=== PATIENT | female | born 1995 ===

== ENCOUNTER 2024-06-24 21:01 | Emergency (ER) | payer OTHER, MEDICAID, SELFPAY ==
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
[2024-06-24 21:17] VITALS: BP 160/80; PULSE 94; O2SAT 98
[2024-06-24 21:18] VITALS: BMI 20.8
[2024-06-24] MEDS: Acetaminophen 325 MG TABLET 975 MG PO (21:41)
[2024-06-24 21:50] LABS: Appearance Urine Clear; Color Urine Yellow; Glucose Urine UA Negative (Negative); Leukocyte Esterase Urine Trace (Negative); Nitrite Urine Negative (Negative); Specific Gravity - Urine <= 1.005 (1.005-1.025); UMIC TRIGGER UACC YES; Urine Blood Negative (Negative); Urine Ketones Negative (Negative); Urine Protein Trace mg/dL (Neg-Trace)
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
[2024-06-24 21:55] LABS: Bacteria Urine Trace (None Seen); Hyaline Casts Urine 0-2 /LPF (0-2); RBC Urine 0-2 /HPF (0-2); Squamous Epithelial Cell Urine 0-2 /HPF (0-2); UACC Culture Trigger YES
[2024-06-24 22:01] LABS: UPreg QC Valid YES; Urine Pregnancy NEGATIVE (NEGATIVE)
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
[2024-06-24 23:38] VITALS: BP 131/82; PULSE 86; RESP 20; TEMP 36.5; O2SAT 100
--- NOTE | 2024-06-24 23:47 | PC.NURSE ---
This RN took over care at 23:00 from Quintin Manzano, reviewed discharge instructions with pt. pt verbalized understanding, no sign of distress upon discharged. Pt has a steady gait.
[2024-06-24 23:53] VITALS: BP 131/82; PULSE 86; RESP 20; TEMP 36.5; O2SAT 100
== END 2024-06-24 23:53 | disposition home or self-care (01) ==
PROVIDERS: Emergency Provider Emergency Medicine; PCP Internal Medicine
DX: S02.2XXA Fracture of nasal bones, initial encounter for closed fracture (principal); R51.9 Headache, unspecified; Y04.2XXA Assault by strike against or bumped into by another person, initial encounter; Y93.9 Activity, unspecified; Y92.9 Unspecified place or not applicable; Y99.8 Other external cause status; Z79.899 Other long term (current) drug therapy
CPT/HCPCS: 70486; 81001; 81025; 87086; 87088; 87186; 99284

== ENCOUNTER → 2024-06-24 21:36 | Outpatient (BNV) | payer MEDICAID, SELFPAY | PROVIDERS: Emergency Provider Emergency Medicine; PCP Internal Medicine; Visit Provider Radiology Diagnostic Radiology | DX: S02.2XXA Fracture of nasal bones, initial encounter for closed fracture (principal) | CPT/HCPCS: 70486 ==

== ENCOUNTER 2024-11-05 08:00 | Outpatient (RCR) | payer OTHER, MEDICAID, SELFPAY ==
[2024-10-20 15:14] VITALS: BMI 42.1
[2024-10-20 15:15] VITALS: BP 128/84; PULSE 100; RESP 14; TEMP 36.4; O2SAT 96
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
--- NOTE | 2024-10-23 15:18 | HO.PHP ---
Client's case was open and reviewed in teams.
--- NOTE | 2024-11-03 08:51 | HO.PHP ---
Letty is not scheduled today due to having a conflict in her schedule that she knew prior to starting PHP.
--- NOTE | 2024-11-05 20:00 | HO.PHPPROGNO ---
Subjective Subjective Date of Service: 11/04/24 Reason For Visit: anxiety,PTSD,post Interim History: Patient seen for follow-up, anticipating discharge at the end of program today. GOod Patient titraed ABilify to 4 mg daily and has been stable at that dose, she is in need of refills and is in need of a letter that she participated in program for court. ABilify has been helpful with implusivity I'm feeling less impulsive and more level . Has been off Lexapro, and thinks this may have been causing some agitation or anxiety. Denies any SI, SIB or thougths. SHe wishes to continue working on harm reduction plan around drinking. Denies any alcohol or substance use. SHe follows up with her OP provider on Nov 11. ? Reports no acute issues or concerns. Medication compliant, medications well-tolerated. Denies any adverse effects.? Mood is stable.? Denies any hopelessness or SI. Denies thoughts of harming self or others at this time. Denies any aggressive ideation or HI. Denies any paranoia or AH or VH. Sleep, appetite, energy stable. Medication Compliance: Yes Side effects from medications: No Attending Groups: Yes Review of Systems Acute medical concerns: No Mental Status Exam Mental Status Exam Narrative: Alert, oriented, in no acute distress. Calm, cooperative. Mood stable, affect appropriate. Speech normal. Thought process linear, coherent, more goal-directed. Thought content related to stressors, future-oriented, denies any helplessness, hopelessness or SI.? No aggressive ideation or HI. No paranoia or delusional content elicited. No evidence of psychosis. Insight and judgment fair-good. Diagnostics Vital Signs (24Hr): BMI result Body Mass Index 42.1 Assessment & Plan Assessment & Plan (1) BRANDY (generalized anxiety disorder): Status: Acute Code(s): F41.1 - Generalized anxiety disorder (2) Alcohol use disorder: Status: Acute Code(s): F10.90 - Alcohol use, unspecified, uncomplicated Assessment and Plan: r/o AUD (3) Mood disorder: Status: Acute Code(s): F39 - Unspecified mood [affective] disorder Plan [facility]charge from [facility] ABilify at 5 mg qd prazosin 1 mg BID prn Continue other regular medications? Refills sent to pharmacy Will defer further medication management to outpatient provider *Safety plan reviewed *Discharge diagnoses, treatment course, discharge plan have been reviewed with patient (including medication regime, medication management, potential side effects) as well as treatment rationale were also revisited *Discharge paperwork signed and given to patient, copy sent for scanning to chart Patient educated on: diagnosis, medication risk/benefits and substance abuse Informed Consent: understands Reason for contiued partial hosp. stay Substantial Risk for: stable for discharge Certification I certify that partial hospital treatment is medically necessary due to the symptoms and problems resulting from the patient's mental illness and the failure to treat the patient at the partial hospital level of care would likely result in the patient requiring inpatient psychiatric care which could not be prevented at a less intensive level of care. Total time managing care of this patient today __40__ minutes. Discharge Plan Discharge Attending provider: Mariel Beckford Medications: New prazosin 1 mg capsule 1 mg PO BID Qty: 20 0RF naltrexone 50 mg tablet 50 mg PO BEDTIME Qty: 14 0RF aripiprazole 5 mg tablet 5 mg PO BEDTIME Qty: 30 0RF Continued hydroxyzine HCl 25 mg tablet 25 mg PO PRN (Reason: Anxiety) albuterol 90 mcg/actuation aerosol inhalation montelukast [Singulair] 10 mg tablet 10 mg PO BEDTIME Discontinued escitalopram oxalate 10 mg tablet 10 mg PO DAILY Stand Alone Forms: Patient Portal Discharge page Patient Education: Mood Disorders (ED), Mood Disorders (DC), PTSD (Post Traumatic Stress Disorder) (ED), PTSD (Post Traumatic Stress Disorder) (DC) Print Language: Zambian
== END 2024-11-05 23:59 | disposition home or self-care (01) ==
LOC: HO.PHPA 08:00
PROVIDERS: Visit Provider Psychiatry & Neurology Psychiatry
DX: F41.1 Generalized anxiety disorder (principal); F39 Unspecified mood [affective] disorder; F10.90 Alcohol use, unspecified, uncomplicated; F43.12 Post-traumatic stress disorder, chronic; Z79.899 Other long term (current) drug therapy
CPT/HCPCS: 90791; 90853